=== PATIENT | female | born 1985 | race Caucasian/White ===

== ENCOUNTER 2017-03-05 14:17 | Inpatient (IN) | payer OTHER ==
[2017-03-05] MEDS ORDERED: AMPICILLIN - 2 GM in SODIUM CHLORIDE 100 ML IVPB ONE (15:45)
[2017-03-05 16:19] VITALS: BMI 28.7
[2017-03-05] MEDS ORDERED: DEXTROSE 5%-LACTATED RINGERS 1,000 ML IV SCH (17:15)
[2017-03-05 17:46] LABS: BASOPHIL 0.3 % (0-2.0); EOSINOPHIL 0.4 % (0-4.5); MCHC 33.4 g/dl (32.0-36.0); MEAN CELL VOLUME 89.9 fl (80-96); MEAN PLT VOLUME 9.8 fl (7.5-11.1); NEUTROPHILS 76.6 % (42.8-82.8); PLATELET COUNT 152 K/MM3 (134-434); RDW 14.2 % (11.6-15.6); WHITE BLOOD COUNT 7.2 K/mm3 (4.0-10.0)
[2017-03-05 18:00] LABS: ANION GAP 10 (8-16); CALCIUM 8.4 mg/dL (8.5-10.1); CO2 20 mmol/L (21-32); CREATININE 0.3 mg/dL (0.55-1.02); GLUCOSE,RANDOM 77 mg/dL (74-106)
[2017-03-05 18:56] LABS: INR 0.92 (0.82-1.09); PROTHROMBIN TIME (PATIENT) 10.1 SEC (9.98-11.88)
[2017-03-05 18:59] LABS: ACTIVATED PTT 27.1 SECONDS (26.9-34.4)
--- NOTE | 2017-03-05 19:33 | HP ---
Past Medical History - Admission Chief Complaint: Rupture of membrane History of Present Illness: 31 yo @ 37 weeks gestation, presents c/o rupture of membrane at 14:00. She c/o mild contractions pain. History Source: Patient Limitations to Obtaining History: No Limitations - Past Medical History ...: 2 ...Para: 1 ...Term: 1 ...: 0 ...Spon : 0 ...Induced : 0 ...Multiple Gestation: 0 ...LMP: 06/15/16 ... Weeks Gestation by Dates: 37.4 ...EDC by Dates: 03/22/17 ...EDC by Sono: 03/24/17 - Past Surgical History Past Surgical History: Yes: None Hx Myomectomy: No Hx Transabdominal Cerclage: No - Smoking History Smoking history: Never smoked Have you smoked in the past 12 months: No - Alcohol/Substance Use Hx Alcohol Use: No History of Substance Use: reports: None - Social History Usual Living Arrangement: Yes: With Spouse History of Recent Travel: No Home Medications - Allergies Allergies/Adverse Reactions: Allergies Allergy/AdvReac Type Severity Reaction Status Date / Time No Known Allergies Allergy Verified 03/05/17 16:00 - Home Medications Home Medications: Ambulatory Orders Vit/Iron Fumarate/FA [ Tablet] 1 tab PO DAILY 03/05/17 Family Disease History - Family Disease History Family History: Unremarkable Review of Systems - Review of Systems Constitutional: reports: No Symptoms Eyes: reports: No Symptoms HENT: reports: No Symptoms Neck: reports: No Symptoms Cardiovascular: reports: No Symptoms Respiratory: reports: No Symptoms Gastrointestinal: reports: No Symptoms Genitourinary: reports: Other (Leakage of fluid) Breasts: reports: No Symptoms Reported Musculoskeletal: reports: No Symptoms Integumentary: reports: No Symptoms Neurological: reports: No Symptoms Endocrine: reports: No Symptoms Hematology/Lymphatic: reports: No Symptoms Psychiatric: reports: No Symptoms Pain Intensity: 3 Physical Exam - Maternity Vital Signs: Vital Signs Temperature 98.7 F 03/05/17 18:00 Pulse Rate 85 03/05/17 18:00 Respiratory Rate 18 03/05/17 18:00 Blood Pressure 119/73 03/05/17 18:00 O2 Sat by Pulse Oximetry (%) 98 03/05/17 14:26 Constitutional: Yes: Well Nourished Eyes: Yes: Conjunctiva Clear HENT: Yes: Atraumatic Neck: Yes: Supple, Trachea Midline Cardiovascular: Yes: Regular Rate and Rhythm Lungs: Clear to auscultation Breast(s): Yes: WNL - Abdominal Exam/OB Number of Fetuses: Single Presentation: Vertex Contractions: Yes Regularity: Irritability Intensity: Mild - Vaginal Exam/OB Vaginal Bleediing: No Dilatation (cm): 2 Effacement (%): 70 Amniotic Membrane Status: Ruptured Presentation: Vertex/Position Station: -2 - Physical Exam Psychiatric: Yes: Alert, Oriented - Labs Lab Results: CBC, BMP 03/05/17 16:45 03/05/17 16:45 Problem List - Problems (1) Spontaneous rupture of membranes Code(s): [id number] - Assessment/Plan SROM IUP @ 37 weeks Admit to L&D Analgesia as needed Anticipate
[2017-03-05] MEDS ORDERED: AMPICILLIN - 1 GM in SODIUM CHLORIDE 100 ML IVPB ONE (19:58)
[2017-03-05] MEDS ORDERED: BUTORPHANOL TARTRATE 1 MG/ML VIAL IVPUSH PRN (20:40)
[2017-03-05] MEDS ORDERED: PROMETHAZINE HCL 25 MG/1 ML VIAL IVPUSH PRN (20:41)
[2017-03-05] MEDS ORDERED: BENZOCAINE 28 GM HEMORRHOIDAL OINTMENT TP PRN (23:04)
[2017-03-05] MEDS ORDERED: BENZOCAINE 20% 57 GM BOTTLE TP PRN (23:04)
[2017-03-05] MEDS ORDERED: WITCH HAZEL 50% (TUCKS) 40 PAD/JAR PAD TP PRN (23:04)
[2017-03-05] MEDS ORDERED: METHYLERGONOVINE MALEATE 0.2 MG/1 ML AMP IM PRN (23:04)
[2017-03-05] MEDS ORDERED: BISACODYL 10 MG SUPP.RECT RC PRN (23:04)
[2017-03-05] MEDS ORDERED: ACETAMINOPHEN 325 MG TABLET (FP) PO PRN (23:04)
--- NOTE | 2017-03-05 23:08 | PN ---
Delivery - Delivery Vaginal Delivery: Spontaneous Type of Anesthesia: Local Episiotomy/Laceration: Midline EBL (cc): 300 Delivery, Single - Feeding Plan Initial Plan: Exclusive throughout hospitalization Remarks - Remarks Remarks: Normal spontaneous vaginal delivery of a live infant boy over midline episiotomy. Nose / Oropharynx suctioned @ perineum. Cord clamped and cut Placenta expelled spontaneously intact. Episiotomy repaired in layers with 2.0 Chromic and 2.0 Biosyn.
--- NOTE | 2017-03-05 23:12 | DS ---
Physical Exam-TECHNICAL OPERATOR Vital Signs: Vital Signs Temperature 98.7 F 03/05/17 18:00 Pulse Rate 85 03/05/17 18:00 Respiratory Rate 18 03/05/17 18:00 Blood Pressure 119/73 03/05/17 18:00 O2 Sat by Pulse Oximetry (%) 98 03/05/17 14:26 Constitutional: Yes: Well Nourished Eyes: Yes: Conjunctiva Clear HENT: Yes: Atraumatic Neck: Yes: Supple, Trachea Midline Cardiovascular: Yes: Regular Rate and Rhythm Respiratory: Yes: Regular, CTA Bilaterally Gastrointestinal: Yes: Normal Bowel Sounds Vaginal Exam: Yes: Normal Cervix: Yes: Normal Uterus: Yes: Firm ....Post : Yes: Uterus firm, Moderate lochia serosa Breast(s): Yes: WNL Musculoskeletal: Yes: WNL Extremities: Yes: WNL Wound/Incision: Yes: Well Approximated Neurological: Yes: Alert, Oriented ...Motor Strength: WNL Psychiatric: Yes: Alert, Oriented Labs: CBC, BMP 03/05/17 16:45 03/05/17 16:45 Delivery - Delivery Vaginal Delivery: Spontaneous Type of Anesthesia: Local Episiotomy/Laceration: Midline EBL (cc): 300 Delivery, Single - [place] Feeding Plan Initial Plan: Exclusive throughout hospitalization Discharge Summary Reason For Visit: LABOR ADMIT Current Active Problems Spontaneous rupture of membranes (Acute) Status post normal vaginal delivery (Acute) Procedures: Principal: Normal spontaneous vaginal delivery Hospital Course: Routine care Condition: Good - Instructions Diet, Activity, Other Instructions: Regular diet No douching, no sexual intercourse x 6 weeks F/U in clinic in 6 weeks Disposition: HOME - Home Medications Comprehensive Discharge Medication List: Ambulatory Orders Vit/Iron Fumarate/FA [ Tablet] 1 tab PO DAILY 03/05/17
[2017-03-06] MEDS: D5W-LR W/ 20 UNITS OXYTOCIN 1,000 ML IV SCH ×2 (00:35→00:58)
[2017-03-06] MEDS: IBUPROFEN 600 MG TABLET (FP) PO PRN ×2 (03:33→20:19)
[2017-03-06 07:08] LABS: BASOPHIL 0.5 % (0-2.0); EOSINOPHIL 0.4 % (0-4.5); MCH 30.5 pg (25.7-33.7); MCHC 33.5 g/dl (32.0-36.0); MEAN PLT VOLUME 9.2 fl (7.5-11.1); NEUTROPHILS 77.3 % (42.8-82.8); PLATELET COUNT 142 K/MM3 (134-434); RDW 14.5 % (11.6-15.6); WHITE BLOOD COUNT 10.1 K/mm3 (4.0-10.0)
--- NOTE | 2017-03-06 08:57 | PN ---
Post Progress Note - Subjective Subjective: 31 yo Para 2, status post normal vaginal delivery, seen and evaluated. Doing well. Post Day: 1 Type of Delivery: Vital Signs: Vital Signs Temperature 98.3 F 03/06/17 05:00 Pulse Rate 86 03/06/17 05:00 Respiratory Rate 18 03/06/17 05:00 Blood Pressure 117/57 03/06/17 05:00 O2 Sat by Pulse Oximetry (%) 100 03/06/17 01:15 Breast Exam: Yes: Soft Uterus: Yes: Fundus Firm Abdomen/GI: Yes: Abdomen soft, Tolerating PO Lochia: Yes: Rubra Lochia, amount: Moderate Extremities: Yes: Calves non-tender Perineum: Yes: Episiotomy (Healing wound) Activity: Ambulating - Labs Labs: CBC WBC 10.1 K/mm3 (4.0-10.0) H D 03/06/17 06:30 RBC 3.82 M/mm3 (3.60-5.2) 03/06/17 06:30 Hgb 11.7 GM/dL (10.7-15.3) 03/06/17 06:30 Hct 34.8 % (32.4-45.2) 03/06/17 06:30 MCV 91.0 fl (80-96) 03/06/17 06:30 MCH 30.5 pg (25.7-33.7) 03/06/17 06:30 MCHC 33.5 g/dl (32.0-36.0) 03/06/17 06:30 RDW 14.5 % (11.6-15.6) 03/06/17 06:30 Plt Count 142 K/MM3 (134-434) 03/06/17 06:30 MPV 9.2 fl (7.5-11.1) 03/06/17 06:30 Neutrophils % 77.3 % (42.8-82.8) 03/06/17 06:30 Lymphocytes % 14.8 % (8-40) 03/06/17 06:30 Monocytes % 7.0 % (3.8-10.2) 03/06/17 06:30 Eosinophils % 0.4 % (0-4.5) 03/06/17 06:30 Basophils % 0.5 % (0-2.0) 03/06/17 06:30 Problem List - Problems (1) Spontaneous rupture of membranes Code(s): ZSV3205 - Assessment/Plan Status post vaginal delivery Stable Continue routine care
[2017-03-06] MEDS: FERROUS SO4 325 MG TABLET (FP) PO SCH ×3 (09:26→17:23)
[2017-03-06] MEDS: PRENATAL VITAMINS W/ FOLIC ACID TABLET (FP) PO SCH (09:26)
[2017-03-06] MEDS ORDERED: DIPHTH,PERTUSS(ACELL),TET 0.5 ML DISP.SYRIN IM ONE (10:00)
[2017-03-06] MEDS ORDERED: SENNOSIDES/DOCUSATE COMBO (SENNA PLUS) TABLET (UD) PO PRN (22:00)
[2017-03-07] MEDS: D5W-LR W/ 20 UNITS OXYTOCIN 1,000 ML IV SCH (01:03)
[2017-03-07] MEDS: FERROUS SO4 325 MG TABLET (FP) PO SCH ×2 (08:01→13:12)
[2017-03-07] MEDS: PRENATAL VITAMINS W/ FOLIC ACID TABLET (FP) PO SCH (09:05)
--- NOTE | 2017-03-07 09:28 | PN ---
Post Progress Note - Subjective Subjective: no complains Post Day: 2 Type of Delivery: Vital Signs: Vital Signs Temperature 97.9 F 03/06/17 22:00 Pulse Rate 83 03/06/17 22:00 Respiratory Rate 18 03/06/17 22:00 Blood Pressure 118/74 03/06/17 22:00 O2 Sat by Pulse Oximetry (%) 100 03/06/17 01:15 Breast Exam: Yes: Soft, Engorged, Other (both bottle & BF) Uterus: Yes: Fundus Firm, Fundus below umbilicus Lochia: Yes: Rubra Lochia, amount: Moderate Extremities: Yes: Calves non-tender Perineum: Yes: Intact Activity: Ambulating - Labs Labs: CBC WBC 10.1 K/mm3 (4.0-10.0) H D 03/06/17 06:30 RBC 3.82 M/mm3 (3.60-5.2) 03/06/17 06:30 Hgb 11.7 GM/dL (10.7-15.3) 03/06/17 06:30 Hct 34.8 % (32.4-45.2) 03/06/17 06:30 MCV 91.0 fl (80-96) 03/06/17 06:30 MCH 30.5 pg (25.7-33.7) 03/06/17 06:30 MCHC 33.5 g/dl (32.0-36.0) 03/06/17 06:30 RDW 14.5 % (11.6-15.6) 03/06/17 06:30 Plt Count 142 K/MM3 (134-434) 03/06/17 06:30 MPV 9.2 fl (7.5-11.1) 03/06/17 06:30 Neutrophils % 77.3 % (42.8-82.8) 03/06/17 06:30 Lymphocytes % 14.8 % (8-40) 03/06/17 06:30 Monocytes % 7.0 % (3.8-10.2) 03/06/17 06:30 Eosinophils % 0.4 % (0-4.5) 03/06/17 06:30 Basophils % 0.5 % (0-2.0) 03/06/17 06:30 Assessment/Plan stable plan discharge today
[2017-03-07 12:00] VITALS: BP 107/60; PULSE 69; TEMP 97.7
== END 2017-03-07 13:00 | disposition home or self-care (01) | DRG 560 ==
LOC: JER 14:17 → JLDR 15:00 → J3W 03-06 01:15
PROVIDERS: ADMIT Obstetrics & Gynecology; ATTEND Obstetrics & Gynecology
PROC: 10E0XZZ Delivery of Products of Conception, External Approach (ICD-10-PCS; principal; 2017-03-05)
PROC: 0W8NXZZ Division of Female Perineum, External Approach (ICD-10-PCS; 2017-03-05)
DX: O80 Encounter for full-term uncomplicated delivery (principal); Z3A.37 37 weeks gestation of pregnancy; Z37.0 Single live birth
CPT/HCPCS: 36415; 59409; 80048; 85025; 85610; 85730; 86593; 86850; 86900; 86901; 90715; 99283-25

== ENCOUNTER 2018-06-05 19:50 | Inpatient (IN) | payer OTHER ==
[2018-06-05] MEDS: IBUPROFEN 600 MG TABLET (FP) PO PRN ×2 (20:05→23:51)
[2018-06-05] MEDS: ACETAMINOPHEN 325 MG TABLET (FP) PO PRN ×2 (20:05→23:50)
[2018-06-05] MEDS ORDERED: BENZOCAINE 28 GM HEMORRHOIDAL OINTMENT TP PRN (20:14)
[2018-06-05] MEDS ORDERED: BENZOCAINE 20% 57 GM BOTTLE TP PRN (20:14)
[2018-06-05] MEDS ORDERED: BISACODYL 10 MG SUPP.RECT RC PRN (20:14)
[2018-06-05] MEDS ORDERED: METHYLERGONOVINE MALEATE 0.2 MG/1 ML AMP IM PRN (20:14)
[2018-06-05] MEDS ORDERED: WITCH HAZEL 50% (TUCKS) 40 PAD/JAR PAD TP PRN (20:14)
[2018-06-05] MEDS ORDERED: OXYTOCIN 20 UNITS in 0.9% NS 20 UNIT/1,000 ML INFUS.BAG IV SCH (20:15)
--- NOTE | 2018-06-05 20:32 | PN ---
Delivery - Delivery Vaginal Delivery: No Problems Type of Anesthesia: Local (10cc 1% lidocaine injected after delivery before repair of laceration) Episiotomy/Laceration: 2nd degree EBL (cc): 300 Delivery, Single - Stages of Labor Date of Delivery: 06/05/18 Time of Delivery: 19:55 Date Placenta Delivered: 06/05/18 Time Placenta Delivered: 20:00 Placenta: Yes: Spontaneous - Condition of Hvac Field Service Technician/Scow Hand Present: No Gender: Female Position: Left, OA - 1 Minute Total Score: 9 5 Minutes Total Score: 9 Remarks - Remarks Remarks: Normal from CHETNA position anterior shoulder (right) and posterior shoulder delivered with ease along with remainder of 3vc noted, clamped and cut placenta delivered spontaneously and in tact 2nd degree laceration repaired with 2-0 chromic suture in usual fashion Apgars 9/9 mom stable baby to well baby nursery sponge and needle count correct IM pitocin administered as no IV line present after delivery
[2018-06-05] MEDS ORDERED: OXYTOCIN 10 UNITS/ML VIAL IM ONE (21:00)
[2018-06-05 21:54] LABS: BASO % 0.4 % (0-2.0); EOS % 0.1 % (0-4.5); HEMATOCRIT 41.5 % (32.4-45.2); HEMOGLOBIN 13.9 GM/dL (10.7-15.3); LYMPH % 3.6 % (8-40); MCH 30.5 pg (25.7-33.7); MCHC 33.4 g/dl (32.0-36.0); MEAN CELL VOLUME 91.2 fl (80-96); MEAN PLT VOLUME 9.6 fl (7.5-11.1); MONO % 3.2 % (3.8-10.2); NEUT % 92.7 % (42.8-82.8); PLATELET COUNT 199 K/MM3 (134-434); RBC 4.55 M/mm3 (3.60-5.2); RDW 14.1 % (11.6-15.6); WHITE BLOOD COUNT 11.6 K/mm3 (4.0-10.0)
[2018-06-05 22:04] VITALS: BMI 30.4
[2018-06-05 22:07] LABS: INR 0.86 (0.83-1.09); PROTHROMBIN TIME (PATIENT) 10.1 SEC (9.7-13.0)
[2018-06-05 22:13] LABS: ANION GAP 11 MMOL/L (8-16); BLOOD UREA NITROGEN 8 mg/dL (7-18); CALCIUM 8.9 mg/dL (8.5-10.1); CHLORIDE 112 mmol/L (98-107); CO2 18 mmol/L (21-32); CREATININE 0.5 mg/dL (0.55-1.3); GLUCOSE,RANDOM 143 mg/dL (74-106); POTASSIUM 3.7 mmol/L (3.5-5.1); SODIUM 141 mmol/L (136-145)
[2018-06-05 22:42] LABS: ACTIVATED PTT 23.7 SECONDS (25.2-36.5)
[2018-06-05 23:27] LABS: ANISOCYTOSIS 2+
[2018-06-05 23:28] LABS: PLATELET ESTIMATE ADEQUATE
[2018-06-06] MEDS: ACETAMINOPHEN 325 MG TABLET (FP) PO PRN ×2 (05:23→13:24)
[2018-06-06] MEDS: IBUPROFEN 600 MG TABLET (FP) PO PRN ×2 (05:23→13:24)
--- NOTE | 2018-06-06 07:39 | PN ---
Post Progress Note Type of Delivery: Vital Signs: Vital Signs Temperature 98 F 06/06/18 05:45 Pulse Rate 77 06/06/18 05:45 Respiratory Rate 18 06/06/18 05:45 Blood Pressure 108/55 L 06/06/18 05:45 O2 Sat by Pulse Oximetry (%) 100 06/05/18 21:30 Uterus: Yes: Fundus Firm Abdomen/GI: Yes: Abdomen soft Lochia: Yes: Rubra Lochia, amount: Moderate Perineum: Yes: Laceration Activity: Ambulating - Labs Labs: CBC WBC 11.6 K/mm3 (4.0-10.0) H 06/05/18 21:30 RBC 4.55 M/mm3 (3.60-5.2) 06/05/18 21:30 Hgb 13.9 GM/dL (10.7-15.3) 06/05/18 21:30 Hct 41.5 % (32.4-45.2) D 06/05/18 21:30 MCV 91.2 fl (80-96) 06/05/18 21:30 MCH 30.5 pg (25.7-33.7) 06/05/18 21:30 MCHC 33.4 g/dl (32.0-36.0) 06/05/18 21:30 RDW 14.1 % (11.6-15.6) 06/05/18 21:30 Plt Count 199 K/MM3 (134-434) D 06/05/18 21:30 MPV 9.6 fl (7.5-11.1) 06/05/18 21:30 Absolute Neuts (auto) 10.8 K/mm3 (1.5-8.0) H 06/05/18 21:30 Total Counted 100 06/05/18 21:30 Neutrophils % 92.7 % (42.8-82.8) H 06/05/18 21:30 Neutrophils % (Manual) 89.0 % (42.8-82.8) H 06/05/18 21:30 Band Neutrophils % 6.0 % 06/05/18 21:30 Lymphocytes % 3.6 % (8-40) L D 06/05/18 21:30 Lymphocytes % (Manual) 3.0 % (8-40) L 06/05/18 21:30 Monocytes % 3.2 % (3.8-10.2) L 06/05/18 21:30 Monocytes % (Manual) 2 % (3.8-10.2) L 06/05/18 21:30 Eosinophils % 0.1 % (0-4.5) 06/05/18 21:30 Basophils % 0.4 % (0-2.0) 06/05/18 21:30 Nucleated RBC % 0 % (0-0) 06/05/18 21:30 Platelet Estimate Adequate 06/05/18 21:30 Platelet Comment Large platelets 06/05/18 21:30 Polychromasia 1+ 06/05/18 21:30 Anisocytosis 2+ 06/05/18 21:30 Spherocytes 1+ 06/05/18 21:30 Assessment/Plan 32yo s/p , PPD#1 Routine PP care OOB, ambulate CBC reviewed Anticipate d/c to home tomorrow Lit Andrews MD
[2018-06-06 08:46] LABS: BASO % 0.4 % (0-2.0); EOS % 0.6 % (0-4.5); HEMATOCRIT 39.2 % (32.4-45.2); LYMPH % 15.8 % (8-40); MCH 30.1 pg (25.7-33.7); MCHC 33.2 g/dl (32.0-36.0); MEAN CELL VOLUME 90.6 fl (80-96); MEAN PLT VOLUME 9.7 fl (7.5-11.1); MONO % 7.6 % (3.8-10.2); NEUT % 75.6 % (42.8-82.8); PLATELET COUNT 176 K/MM3 (134-434); RBC 4.33 M/mm3 (3.60-5.2); RDW 14.3 % (11.6-15.6); WHITE BLOOD COUNT 8.9 K/mm3 (4.0-10.0)
[2018-06-06] MEDS: PRENATAL VITAMINS W/ FOLIC ACID TABLET (FP) PO SCH (10:18)
[2018-06-06] MEDS ORDERED: SENNOSIDES/DOCUSATE COMBO (SENNA PLUS) TABLET (UD) PO PRN (22:00)
--- NOTE | 2018-06-07 07:07 | DS ---
Physical Exam-ASSESSMENT RN Vital Signs: Vital Signs Temperature 98.0 F 06/06/18 20:42 Pulse Rate 84 06/06/18 20:42 Respiratory Rate 20 06/06/18 20:42 Blood Pressure 118/78 06/06/18 20:42 O2 Sat by Pulse Oximetry (%) 100 06/05/18 21:30 Constitutional: Yes: Well Nourished, No Distress, Calm Eyes: Yes: WNL, Conjunctiva Clear, EOM Intact HENT: Yes: WNL, Atraumatic, Normocephalic Neck: Yes: WNL, Supple, Trachea Midline Cardiovascular: Yes: WNL, Regular Rate and Rhythm Respiratory: Yes: WNL, Regular, CTA Bilaterally Gastrointestinal: Yes: WNL ...Rectal Exam: Yes: WNL Renal/: Yes: WNL External Genitalia: Yes: Normal ....Post : Yes: Uterus firm, Uterus non-tender, Slight lochia rubra Breast(s): Yes: WNL Musculoskeletal: Yes: WNL Extremities: Yes: WNL Integumentary: Yes: WNL Neurological: Yes: WNL, Alert, Oriented ...Motor Strength: WNL Psychiatric: Yes: WNL, Alert, Oriented Labs: CBC, BMP 06/06/18 07:12 06/05/18 21:30 Delivery - Delivery Vaginal Delivery: No Problems, Spontaneous Type of Anesthesia: Local Episiotomy/Laceration: 2nd degree EBL (cc): 300 Delivery, Single - Stages of Labor Date 1st Stage Initiatied: 06/05/18 Time 1st Stage Initiated: 17:00 Date 2nd Stage Initiated: 06/05/18 Time 2nd Stage Initiated: 19:50 Date of Delivery: 06/05/18 Time of Delivery: 19:55 Time Placenta Delivered: 20:00 Placenta: Yes: Spontaneous - Condition of Shredding Machine Tender/Child Welfare Assistant Present: No Infant Gender: Female Weight: 6 lb 14 oz Position: Left, OA Total Hours ROM (Hrs/Mins): 1hr 30min - 1 Minute Total Score: 9 5 Minutes Total Score: 9 - Feeding Plan Initial Plan: Elected not to breastfeed exclusively throughout hospitalization Discharge Summary Reason For Visit: LABOR Procedures: Principal: Condition: Good - Instructions Diet, Activity, Other Instructions: regular diet, no intercourse if heavy vaginal bleeding pain, fever call MD Referrals: Ernestina Andrews MD [Staff Physician] - - Home Medications Comprehensive Discharge Medication List: Ambulatory Orders Vit/Iron Fum/Folic AC [ Tablet] 1 tab PO DAILY 03/05/17 Ibuprofen [Motrin -] 600 mg PO TID #21 tablet 06/06/18
--- NOTE | 2018-06-07 07:09 | PN ---
Progress Note (short form) - Note Progress Note: ppd 2 s/p , no c/o ,no excess vaginal bleeding, voids ok CBC, BMP 06/06/18 07:12 06/05/18 21:30 Last Vital Signs Temp Pulse Resp BP Pulse Ox 98.0 F 84 20 118/78 100 06/06/18 20:42 06/06/18 20:42 06/06/18 20:42 06/06/18 20:42 06/05/18 21:30 abdomen soft, non tender, no cva uterus firm lochia mild, no calf tenderness plan ambulate, d/c home, follow up [facility] care 4 weeks instruction given
[2018-06-07 08:37] VITALS: BP 118/65; PULSE 75; TEMP 97.9
[2018-06-07] MEDS: PRENATAL VITAMINS W/ FOLIC ACID TABLET (FP) PO SCH (09:34)
--- NOTE | 2018-06-07 10:20 | HP ---
Past Medical History - Admission Chief Complaint: Uterine contractions History of Present Illness: 32yo [id number] @ 38wks who presented in active labor. SROM within an hour prior to admission. No VB. +LOF. +ctx. +FM Preg c/b GBS positive, prior history of PPROM History Source: Patient - Past Medical History ...: 3 ...Para: 2 ...Term: 1 ...: 1 ...Spon : 0 ...Induced : 0 ...Multiple Gestation: 0 ...LMP: 09/12/17 ... Weeks Gestation by Dates: 38.0 ...EDC by Dates: 06/19/18 ...EDC by Sono: 06/14/18 - Past Surgical History Past Surgical History: Yes: None Hx Myomectomy: No Hx Transabdominal Cerclage: No - Smoking History Smoking history: Never smoked Have you smoked in the past 12 months: No - Alcohol/Substance Use Hx Alcohol Use: No History of Substance Use: reports: None - Social History History of Recent Travel: No Home Medications - Allergies Allergies/Adverse Reactions: Allergies Allergy/AdvReac Type Severity Reaction Status Date / Time No Known Allergies Allergy Verified 06/05/18 20:49 - Home Medications Home Medications: Ambulatory Orders Vit/Iron Fum/Folic AC [ Tablet] 1 tab PO DAILY 03/05/17 Ibuprofen [Motrin -] 600 mg PO TID #21 tablet 06/06/18 Physical Exam - Maternity Vital Signs: Vital Signs Temperature 97.9 F 06/07/18 08:35 Pulse Rate 75 06/07/18 08:35 Respiratory Rate 20 06/07/18 08:35 Blood Pressure 118/65 06/07/18 08:35 O2 Sat by Pulse Oximetry (%) 100 06/05/18 21:30 - Abdominal Exam/OB Number of Fetuses: Single Presentation: Vertex Contractions: Yes Intensity: Strong Monitor Mode: External Heart Rate (range): Cat 1 Category: I Accelerations: Uniform Decelerations: None - Vaginal Exam/OB Vaginal Bleediing: No Dilatation (cm): 10 Effacement (%): 100 Amniotic Membrane Status: Ruptured Station: +2 - Labs Lab Results: CBC, BMP 06/06/18 07:12 06/05/18 21:30 Assessment/Plan 32yo @ 38wks here in active labor, imminent delivery Admit to L&D Insufficient GBS PPx given precipitous delivery Anticipate imminent delivery Lit Andrews MD
== END 2018-06-07 12:45 | disposition home or self-care (01) | DRG 560 ==
LOC: JLDR 19:50 → J3W 22:35
PROVIDERS: ADMIT Obstetrics & Gynecology; ATTEND Obstetrics & Gynecology
PROC: 10E0XZZ Delivery of Products of Conception, External Approach (ICD-10-PCS; principal; 2018-06-05)
PROC: 0KQM0ZZ Repair Perineum Muscle, Open Approach (ICD-10-PCS; 2018-06-05)
DX: O99.824 Streptococcus B carrier state complicating childbirth (principal); O62.3 Precipitate labor; O70.1 Second degree perineal laceration during delivery; Z3A.38 38 weeks gestation of pregnancy; Z37.0 Single live birth
CPT/HCPCS: 36415; 59409; 80048; 85025; 85610; 85730; 86593; 86850; 86900; 86901